=== PATIENT | female | born 1965 | race Caucasian/White ===

== ENCOUNTER 2019-10-08 12:08 | Outpatient (CLI) | payer MEDICARE, MEDICAID, SELFPAY ==
--- NOTE | 2019-10-10 16:44 | WPDHOLTEREM ---
Holter/Event Monitor Holter/Event Monitor Date of procedure: 10/08/19 Procedure Type: 48 hour holter monitor Indications: Recurrent falls Conclusion: 1. 48 hour holter monitor on 10/08/19. 2. Underlying rhythm is sinus rhythm. HR range 43-132 bpm; average HR 76 bpm. 3. There is one premature supraventricular complex. No supraventricular tachycardia. 4. No premature ventricular complex. No ventricular tachycardia. 5. No sinoatrial or atrioventricular blocks. No significant pauses greater than 2 seconds. 6. No symptoms available for correlation.
== END 2019-10-08 12:09 | disposition home or self-care (01) ==
PROVIDERS: PCP Family Medicine; Visit Provider Family Medicine
DX: R29.6 Repeated falls (principal)
CPT/HCPCS: 93225; 93226

== ENCOUNTER 2019-10-17 11:17 | Outpatient (CLI) | payer MEDICARE, MEDICAID, SELFPAY ==
--- NOTE | ~2019-10-17 | XR_ITS ---
EXAMINATION: XR chest 2V DATE: 10/17/2019 11:49 INDICATION: Left chest pain. TECHNIQUE: Frontal and lateral views of the chest were obtained. COMPARISON: Chest 2 views 04/28/2019 FINDINGS: A calcified right lung nodule is consistent with old granulomatous disease. No pleural effu margaret or pneumothorax. The heart size is normal. IMPRESSION: 1. No acute cardiopulmonary disease. Reviewed, dictated and finalized at location A. WORKING MACHINE FEEDER
--- NOTE | ~2019-10-17 | XR_ITS ---
EXAMINATION:XR_CERV2-3V_CR DATE: 10/17/2019 11:49 INDICATION: Left-sided chest pain TECHNIQUE: AP, lateral, and odontoid views of the cervical spine are provided. COMPARISON: None FINDINGS: There are 2 mm of retrolisthesis of C3 on C4. Vertebral body alignment is otherwise normal. The odontoid is intact. No fracture is identified. The vertebral body heights are normal. There is m ild loss of intervertebral disc space height at C5-6 and C6-7. There is moderate multilevel facet and uncovertebral joint osteoarthritis. Prevertebral soft tissues are normal. IMPRESSION: 1. Mild cervical spondylosis without acute findings. Reviewed, dictated and finalized at location A. DESIGNER
--- NOTE | ~2019-10-17 | XR_ITS ---
EXAMINATION: XR lumbar spine 2-3V DATE: 10/17/2019 11:49 INDICATION: Lumbago with sciatica. Radiculopathy. TECHNIQUE: 3 views of lumbar spine were obtained. COMPARISON: Lumbar spine radiograph 02/28/2019 FINDINGS: There is 5 degrees levocurvature of lumbar spine. Vertebral body heights are normal. There is mildly decreased disc height at L1-L2, moderately decreased disc height at L2-L3 and L3-L4, and mi ldly decreased disc height at L4-L5. There is multilevel facet joint osteoarthritis, severe in lower lumbar spine. IMPRESSION: 1. Moderate lumbar spondylosis. Reviewed, dictated and finalized at location A. CTOR OF MATERNITY SERVICES
== END 2019-10-17 11:18 | disposition home or self-care (01) ==
PROVIDERS: PCP Family Medicine; Visit Provider Family Medicine
DX: R07.9 Chest pain, unspecified (principal); M54.42 Lumbago with sciatica, left side; M47.22 Other spondylosis with radiculopathy, cervical region; M47.896 Other spondylosis, lumbar region
CPT/HCPCS: 71046; 72040; 72100

== ENCOUNTER 2019-10-22 10:13 | Outpatient (CLI) | payer MEDICARE, MEDICAID, SELFPAY ==
--- NOTE | ~2019-10-22 | MM_ITS ---
EXAMINATION: MM screening yolanda BI w silvia HISTORY: Screening mammogram, family history of breast cancer in her mother. TECHNIQUE: Craniocaudal and mediolateral oblique 3-D tomosynthesis images were obtained and synthetic 2-D images were generated. CAD analysis was submitted and interpreted. COMPARISON: 10/16/2015, 09/26/2012, 09/07/2010 BREAST PARENCHYMAL COMPOSITION: There are scattered areas of fibroglandular density. FINDINGS: There is no evidence of suspicious mass, calcification, or architectural distortion to sugg est malignancy in either breast. There has been no suspicious interval change. IMPRESSION: 1. No mammographic evidence of malignancy. 2. Recommend routine screening mammography in one year. BI-RADS Category 1: Negative Reviewed, dictated and finalized at location A. ERER FURNACE
== END 2019-10-22 10:14 | disposition home or self-care (01) ==
PROVIDERS: PCP Family Medicine; Visit Provider Family Medicine
DX: Z12.31 Encounter for screening mammogram for malignant neoplasm of breast (principal)
CPT/HCPCS: 77063; 77067

== ENCOUNTER 2020-01-20 08:27 | Outpatient (CLI) | payer MEDICARE, MEDICAID, SELFPAY ==
--- NOTE | ~2020-01-20 | XR_ITS ---
EXAMINATION: XR barium swallow DATE: 01/20/2020 08:58 INDICATION: Intermittent dysphagia TECHNIQUE: The patient drank thick barium, gas-producing crystals, and thin barium. Fluoroscopic spot images of the hypopharynx and esophagus were obtained. A total of 1237 images were obtained. Fluoros copy exposure time was 2.1 minutes. COMPARISON: None. FINDINGS: The pharynx is symmetric and without evidence of mass lesion or mucosal irregularity. The e sophagus is normal without mass or stricture. Esophageal motility is normal. There is no hiatal herni a. There was no gastroesophageal reflux with provocative maneuvers. IMPRESSION: 1. Normal esophagram. Reviewed, dictated and finalized at location A. IMPRESSION: 1. Normal esophagram.
== END 2020-01-20 08:28 | disposition home or self-care (01) ==
LOC: ANHIMG 08:29
PROVIDERS: PCP Family Medicine; Visit Provider Family Medicine
DX: R13.19 Other dysphagia (principal)
CPT/HCPCS: 74220

== ENCOUNTER 2020-10-27 14:58 | Outpatient (CLI) | payer MEDICARE, MEDICAID, SELFPAY ==
--- NOTE | ~2020-10-27 | MM_ITS ---
EXAMINATION: MM screening yolanda BI w silvia HISTORY: Screening mammogram, family history of breast cancer in her sister. TECHNIQUE: Craniocaudal and mediolateral oblique 3-D tomosynthesis images were obtained and synthetic 2-D images were generated. CAD analysis was submitted and interpreted. COMPARISON: 10/22/2019, 10/16/2015, 09/26/2012 BREAST PARENCHYMAL COMPOSITION: There are scattered areas of fibroglandular density. FINDINGS: There is no evidence of suspicious mass, calcification, or architectural distortion to sugg est malignancy in either breast. There has been no suspicious interval change. IMPRESSION: 1. No mammographic evidence of malignancy. 2. Recommend routine screening mammography in one year. BI-RADS Category 1: Negative Reviewed, dictated and finalized at location A. TECHNOLOGIST
== END 2020-10-27 14:59 | disposition home or self-care (01) ==
PROVIDERS: PCP Family Medicine; Visit Provider Family Medicine
DX: Z12.31 Encounter for screening mammogram for malignant neoplasm of breast (principal)
CPT/HCPCS: 77063; 77067

== ENCOUNTER 2022-08-18 15:01 | Outpatient (CLI) | payer OTHER, SELFPAY ==
--- NOTE | ~2022-08-18 | CT_ITS ---
CT Abdomen with contrast. History: Chronic hepatitis B. Spiral CT of the abdomen was performed after the administration of intravenous contrast, with imaging in the arterial and portal venous phases. 100 cc of Omnipaque 350 was administered intravenously wit hout complication. Dose reduction technique was used on this scan by utilizing automated exposure con trol and iterative reconstruction technique. The dose-length product (DLP) was 806.62 mGy-cm. Findings: Scans through the lung bases demonstrate mild atelectatic change. The liver, spleen, pancreas, gallbladder, adrenals and kidneys are within normal limits. No evidence of aortic aneurysm. No lymphadenopathy is seen. Visualized bowel loops are unremarkable. No ascites. Impression: No significant abnormalities seen. Reviewed, dictated and finalized at location [] S WOOL BLANKET MACHINE FEEDER Impression: No significant abnormalities seen.
== END 2022-08-18 15:02 | disposition home or self-care (01) ==
PROVIDERS: PCP Internal Medicine; Visit Provider Internal Medicine
DX: B18.1 Chronic viral hepatitis B without delta-agent (principal)
CPT/HCPCS: 74160; Q9967

== ENCOUNTER 2024-04-05 15:51 | Emergency (ER) | payer OTHER, SELFPAY ==
[2024-04-05 16:17] VITALS: BP 178/88; PULSE 81; RESP 16; TEMP 36.6; O2SAT 98
--- NOTE | 2024-04-05 16:26 | ED.GENADULT ---
HPI - General Adult General Chief complaint: Skin/Abscess/Foreign Body Stated complaint: Rash Time Seen by Provider: 04/05/24 16:20 History of Present Illness HPI narrative: 58 y/o female presents with 3 areas that have been on each hand and upper lip x 1 month. patient states it was itchy but is not currently. patient has tried otc steroid cream with no relief. no other complaints. patient denies fevers. Onset (ago): month(s) (1) Related Data Allergies Allergy/AdvReac Type Severity Reaction Status Date / Time Penicillins Allergy Unknown Unknown Verified 04/05/24 16:20 prednisone Allergy Unknown Unknown Verified 04/05/24 16:20 strawberry Allergy Unknown Unknown Verified 04/05/24 16:20 INJECTABLE STEROIDS Allergy Mild Unknown Uncoded 04/05/24 16:20 Review of Systems Review of Systems: All systems reviewed & are unremarkable except as noted in HPI and below Integumentary/Breasts: Skin/Breast: Reports rash PMFSH Family History Family History (System 08/18/22 @ 16:01 by Miladys Chin) Mother Family history of endocrine disorder Family history of elevated blood lipids Grandparent Hypertension Family history of elevated blood lipids Diabetes mellitus Father Carcinoma of colon Patient's father is Sibling Family history of malignant neoplasm of breast in first degree relative Patient's sister is Social History Social History (System 08/18/22 @ 16:01 by Miladys Chin) Second hand tobacco smoke exposure: No Smoking end date: 09/04/12 Alcohol intake: never Exam Const: General: healthy appearing and no acute distress HENMT: Head: normal to inspection Eyes: Conjunctivae: conjunctivae normal EOM: EOMs intact bilaterally Neck: Neck: normal visual inspection Chest: Chest palpation & inspection: normal inspection of the chest Resp: Effort & Inspection: normal respiratory effort Cardio: Rate: regular rate Back/Spine/Pelvis: Back: no CVA tenderness Skin: Other: 3 circular area to bilateral hands, and upper lip. area is clear in the middle with raised areas on the border, no redness Neuro: General: patient oriented x3 Extrem: General: normal to inspection Psych: Mental Status: mental status grossly normal Course Course Emergency Course: will start on anti-fungal for ring worm Vital Signs Vital signs: Vital Signs Temperature 36.6 C 04/05/24 16:17 Pulse Rate 81 04/05/24 16:17 Respiratory Rate 16 04/05/24 16:17 Blood Pressure 178/88 H 04/05/24 16:17 Pulse Oximetry 98 04/05/24 16:17 Temperature 36.6 C 04/05/24 16:17 Pulse Rate 81 04/05/24 16:17 Respiratory Rate 16 04/05/24 16:17 Blood Pressure 178/88 H 04/05/24 16:17 Pulse Oximetry 98 04/05/24 16:17 Medical Decision Making Differential Diagnosis Differential Diagnosis: contact dermatitis vs ring worm Vital Signs Vital Signs: Vital Signs Temperature 36.6 C 04/05/24 16:17 Pulse Rate 81 04/05/24 16:17 Respiratory Rate 16 04/05/24 16:17 Blood Pressure 178/88 H 04/05/24 16:17 Pulse Oximetry 98 04/05/24 16:17 Temperature 36.6 C 04/05/24 16:17 Pulse Rate 81 04/05/24 16:17 Respiratory Rate 16 04/05/24 16:17 Blood Pressure 178/88 H 04/05/24 16:17 Pulse Oximetry 98 04/05/24 16:17 Discharge Plan Discharge Clinical Impression: Tinea corporis Patient Disposition: Home, Self-Care Condition: Stable Instructions: Antibiotic Form, Tinea Corporis (ED) Additional Instructions: APPLY MEDICATIONS PRESCRIBED RETURN FOR WORSENING SYMPTOMS FOLLOW-UP WITH PRIMARY CARE DOCTOR IN 2 WEEKS Prescriptions: New terbinafine HCl [Antifungal (terbinafine)] 1 % cream 1 applic topical BID 21 Days Qty: 15 0RF Follow-up/Referrals: Betty,Guerrero Husain MD [Primary Care Provider] - 2 Weeks Time of Disposition: 16:33
[2024-04-05 17:09] VITALS: BP 170/78; PULSE 57; RESP 17; TEMP 36.4; O2SAT 98
== END 2024-04-05 17:11 | disposition home or self-care (01) ==
PROVIDERS: Emergency Provider Nurse Practitioner Family; PCP Internal Medicine
DX: B35.4 Tinea corporis (principal); Z87.891 Personal history of nicotine dependence
CPT/HCPCS: 99283

== ENCOUNTER 2024-10-09 08:50 | Outpatient (CLI) | payer OTHER, SELFPAY ==
--- OUTSIDE RECORDS SUMMARY | 2024-10-09 09:02 | XMS_ITS | Clinical Summary ---
Author Organization [facility] Address [address] [place] [address] Care Team Providers Care Rolling Chair Pusher Name Role Phone Jax Connelly Primary Care Provider + Social History Tobacco Use Types Packs/Day Years Used Date Smoking Tobacco: Never Assessed Personal Safety Answer Date Recorded Getting School Help Needed Not on file 11/17 Comments Unknown Sex and Gender Information Value Date Recorded Sex Assigned at Not on file Legal Sex Female 5:13 AM PARTS CONTROL CLERK Gender Identity Not on file Sexual Orientation Not on file Plan of Treatment Health Maintenance Due Date Last Done Comments Cervical Cancer Screening 1963 Colon Cancer Screening-Colonoscopy 1963 Depression Screening 1963 DTaP/Tdap/Td Vaccine (1 - Tdap) 1974 Regular Well Visit/Exam 18-64 1981 Breast Cancer Screening-Mammogram 11/27/2014 11/27/2013 Zoster Vaccine (3 of 3) 11/24/2020 09/29/2020, 06/13 Covid-19 Vaccine ( season) 2024 11/27/2020, 11/05/2020 Influenza Vaccine (#1) 2024 , 07/21/2020, 08/15/2019, Additional history exists Pneumococcal vaccine <65 Aged Out 08/15/2019, 09/2018 No longer eligible based on patient's age to complete this topic Hepatitis B Screening Completed 07/09/2021, 014 Hepatitis C Screening Completed 09/09/2021 , 07/09/2021, 11/16/2013, Additional history exists Procedures Procedure Name Priority Date/Time Associated Diagnosis Comments HEPATITIS C RNA, QUANTITATIVE, PCR Routine 09/09/2021 8:09 AM PARTS CONTROL CLERK SCREENING MAMMOGRAM 2D BILATERAL Routine 11/27/2013 8:25 AM CDT from Last 3 Months or Most Recently Relevant to Health Maintenance Results * Hepatitis C (HCV) RNA PCR, quantitative (09/09/2021 8:09 AM PARTS CONTROL CLERK) HCV RNA result Not Detected ALVARO CUELLAR Comment: The quantifiable range of this assay is 15 IU/mL to 100,000,000 IU/mL (1.18 log IU/mL to 8.00 log IU/mL). Testing was performed by the ESTELA 6800 HCV Test ([employer] Testing performed at [facility] Current Interpretive Data was last revised on 2021 Testing performed by: [facility], [address] [place] [address], [place]., [address] Blood 09/09/2021 8:09 AM PARTS CONTROL CLERK 09/09/2021 11:12 AM PARTS CONTROL CLERK us Funmi Maria MD LAB MICROBIOLOGY - GENERA L ORDERABLES Final Result ALVARO CUELLAR [id number] [facility] Department [place] [address] * Screening Mammogram 2D Bilateral (11/27/2013 8:25 AM CDT) Anatomical Region Laterality Modality Breast Bilateral Mammography 11/27/2013 8:25 AM CDT Impressions 12/02/2013 1:56 PM CDT ?? No mammographic evidence of malignancy. ??Recommend routine annual screening mammography. Given the reported family history of breast cancer, the patient may benefit from genetic counseling, breast cancer lifetime risk assessment, and/or possible screening with breast MRI in conjunction with mammography. ASSESSMENT: ??BIRADS: 1 - Negative A letter will be mailed to the patient with the results and recommendations. The patient will be entered into a reminder system for an anual screening mammogram in 1 year. THIS IS AN ELECTRONICALLY VERIFIED REPORT 12/02/2013 1:53 PM: ??Shahriar Wilson M.D. Shahriar Wilson M.D. MD: 01:53 PM 01:53 PM [facility] [EOD] Narrative 12/02/2013 1:56 PM CDT EXAMINATION: ??Bilateral screening mammography HISTORY: Routine screening mammogram. Sister diagnosed with breast cancer in her late twenties. COMPARISON: ??Prior mammograms performed at [facility] ([place], [place]) dated 09/26/2012, 09/07/2010, and 07/13/2009. TECHNIQUE: ??Bilateral digital full field of view mammography was performed, with the aid of computer aided detection (CAD). FINDINGS: ??The breasts are composed of heterogeneously dense tissue, which may limit the sensitivity of mammography. No significant mass, microcalcifications, or other findings are seen. No suspicious interval change is identified relative to the prior studies. Procedure Note Provider, MD Chris - 01/20/2021 EXAMINATION: Bilateral screening mammography HISTORY: Routine screening mammogram. Sister diagnosed with breast cancerin her late twenties. COMPARISON: [facility] ([place], [place]) dated 09/26/2012, 09/07/2010, and07/13/2009. TECHNIQUE: Bilateral digital full field of view mammography wasperformed, with the aid of computer aided detection (CAD). FINDINGS: The breasts are composed of heterogeneously dense tissue, whichmay limit the sensitivity of mammography. No significant mass, microcalcifications, or other findings are seen. No suspicious intervalchange is identified relative to the prior studies. IMPRESSION: No mammographic evidence of malignancy. Recommend routine annualscreening mammography. Given the reported family history of breast cancer, the patient maybenefit from genetic counseling, breast cancer lifetime risk assessment, and/or possible screening with breast MRI in conjunction with mammography. ASSESSMENT: BIRADS: 1 - Negative A letter will be mailed to the patient with the results andrecommendations. The patient will be entered into a reminder system for an anual screening mammogram in 1 year. THIS IS AN ELECTRONICALLY VERIFIED REPORT 12/02/2013 1:53 PM: Shahriar Wilson M.D. Shahriar Wilson M.D. MD: 01:53 PM 01:53 PM [facility] [EOD] [facility] Twila Poe MD IMG MAMMO PROCEDURES Fi nal Result from Last 3 Months or Most Recently Relevant to Health Maintenance Insurance [address] [place] [address] [facility] Care Teams Rolling Chair Pusher Relationship Specialty Start Date End Date Jax Connelly PA [address] [place] [id number] PCP - General Internal Medicine 09/09/21
--- OUTSIDE RECORDS SUMMARY | 2024-10-09 09:02 | XMS_ITS | Referral Summary ---
Author Organization [facility] Address [address] [place] [address] Care Team Providers Care Materials Supervisor Name Role Phone Jax Connelly Primary Care Provider + Social History Tobacco Use Types Packs/Day Years Used Date Smoking Tobacco: Never Assessed Personal Safety Answer Date Recorded Getting School Help Needed Not on file 11/17 Comments Unknown Sex and Gender Information Value Date Recorded Sex Assigned at Not on file Legal Sex Female 5:13 AM CASHIER OFFICE Gender Identity Not on file Sexual Orientation Not on file Plan of Treatment Not on file Procedures Procedure Name Priority Date/Time Associated Diagnosis Comments HEPATITIS C RNA, QUANTITATIVE, PCR Routine 09/09/2021 8:09 AM CASHIER OFFICE SCREENING MAMMOGRAM 2D BILATERAL Routine 11/27/2013 8:25 AM CDT from Last 3 Months or Most Recently Relevant to Health Maintenance Results * Hepatitis C (HCV) RNA PCR, quantitative (09/09/2021 8:09 AM CASHIER OFFICE) HCV RNA result Not Detected ALVARO CUELLAR Comment: The quantifiable range of this assay is 15 IU/mL to 100,000,000 IU/mL (1.18 log IU/mL to 8.00 log IU/mL). Testing was performed by the ESTELA 6800 HCV Test ([employer] Testing performed at [facility] Current Interpretive Data was last revised on 2021 Testing performed by: [facility], [address] [facility], [place]., [address] Blood 09/09/2021 8:09 AM CASHIER OFFICE 09/09/2021 11:12 AM CASHIER OFFICE us Funmi Maria MD LAB MICROBIOLOGY - GENERA L ORDERABLES Final Result ALVARO [address] [facility] Department [place] [address] * Screening Mammogram 2D Bilateral (11/27/2013 8:25 [...] Wilson M.D. MD: 01:53 PM 01:[address] [facility] [EOD] Narrative 12/02/2013 1:56 PM CDT EXAMINATION: ??Bilateral screening mammography HISTORY: Routine screening mammogram. Sister diagnosed with breast cancer in her late twenties. COMPARISON: ??Prior mammograms performed at [facility] ([place], [place]) dated 09/26/2012, 09/07/2010, and 07/13/2009. TECHNIQUE: [...] late twenties. COMPARISON: Prior mammograms performed at [facility] ([place], [place]) dated 09/26/2012, 09/07/2010, and07/13/2009. TECHNIQUE: Bilateral [...] Wilson M.D. MD: 01:53 PM 01:[address] [facility] [EOD] Manan Poe MD IMG MAMMO PROCEDURES Fi nal Result from Last 3 Months or Most Recently Relevant to Health Maintenance Insurance [facility] Care Teams Materials Supervisor Relationship Specialty Start Date End Date Jax Connelly PA [address] [place] [id number] PCP - General Internal Medicine 09/09/21
--- OUTSIDE RECORDS SUMMARY | 2024-10-09 09:03 | XMS_ITS | Clinical Summary ---
Author Organization [facility] Address [address] [place] [id number] Care Team Providers Care Photography Assistant Name Role Phone Grace Garrett MD Primary Care Provider [phone] Social History Tobacco Use Types Packs/Day Years Used Date Smoking Tobacco: Never Assessed Comments Unknown Sex and Gender Information Value Date Recorded Sex Assigned at Not on file Legal Sex Female 8:07 PM CDT Gender Identity Not on file Sexual Orientation Not on file Plan of Treatment Health Maintenance Due Date Last Done Comments Cervical Cancer Screening Pa p Smear (Age 30 to 64) Every 3 Years 1963 Colorectal Cancer Screening Colonoscopy (10 Years) 1963 Annual Physical 1966 DTaP, Tdap and Td Vaccines ( 1 - Tdap) 1982 Cervical Cancer Screening Pa p with HPV Testing (Age 30 to 64) Every 5 Years 1993 Cervical Cancer Screening with HPV 1993 Mammogram Screening 2003 Zoster Vaccines (1 of 2) 2013 COVID-19 Vaccine (2023-2 5 season) 2024 Influenza Adult (#1) 2024 RSV Immunization or 60+ Years (1 - 1-dose 75+ series) 2038 Hepatitis C Completed 01/11/2012 Meningococcal B Vaccine Aged Out No l onger eligible based on patient's age to complete this topic Meningococcal Vaccine Aged Out No steve yamil eligible based on patient's age to complete this topic Pneumococcal Vaccine: Pediat rics (0 to 5 Years) and At-Risk Patients (6 to 64 Years) Aged Out No longer eligi ble based on patient's age to complete this topic RSV Immunizations Under 20 Months Aged Out No longer eligible based on patient's age to complete this topic Care Teams Photography Assistant Relationship Specialty Start Date End Date Grace Garrett MD [address] [place] [address] [facility] - General 11/10/16
--- OUTSIDE RECORDS SUMMARY | 2024-10-09 09:03 | XMS_ITS | Patient Health Summary ---
Author Organization [facility] [employer] Address [facility] [place] [address] Care Team Providers Care Video Game Maker Name Role Phone Unavailable Primary Care Provider Unavailabl e Note from [facility],non-owned Affiliates and Associated Physician Practices is amultiple site organization consisting of ambulatory clinics and hospital sitesin [place], [place], [place] and [place]. This disclosure is being madepursuant to the Care Everywhere program and may not contain all information available regarding this patient. Last updated 18.[facility] Allergies * Penicillins Medications * Be aware that medications may not be up to date on this document. Alwaysverify current medications with the patient. * ibuprofen (MOTRIN) 800 MG tablet 3 times daily. * buPROPion SR 12hr (WELLBUTRIN SR) 150 MG tablet daily. * diclofenac sodium (VOLTAREN) 75 MG tablet(Started 12/06/2010) Take 1 Tab by mouth 2 times daily. 4 refills left * albuterol HFA (PROVENTIL; VENTOLIN; PROAIR) 108 (90 Base) MCG/ACT inhaler (Started 08/17/2021) INHALE 2 PUFFS BY MOUTH 4 TIMES A DAY NEEDED * vitamin D, ergocalciferol, (DRISDOL) 1.25 MG (34719 UT) capsule(Started 09/26/2021) Take 50,000 Units by mouth every 14 days * lactulose (CHRONULAC) 10 GM/15ML solution(Started 09/07/2021) TAKE 15ML BY MOUTH TWICE DAILY FOR 30 DAYS * omeprazole (PRILOSEC) 20 MG capsule(Started 08/31/2021) Take 20 mg by mouth once daily * lamoTRIgine (LAMICTAL) 150 MG tablet(Started 07/10/2021) TAKE 1 TABLET TWICE A DAY BY ORAL ROUTE BEFORE MEALS FOR 30 DAYS. * oxybutynin (DITROPAN) 5 MG tablet(Started 09/30/2021) TAKE ONE TABLET BY MOUTH TWICE DAILY FOR A NINETY DAY SUPPLY. * QUEtiapine (SEROQUEL) 50 MG tablet(Started 08/21/2021) TAKE 1 TABLET BY MOUTH EVERYDAY AT BEDTIME * triamcinolone acetonide (KENALOG) 0.1 % cream(Started 08/19/2021) APPLY THIN COAT TO AFFECTED AREA TWICE A DAY Active Problems Problem Noted Date Diagnosed Date Degeneration of lumbar or lumbosacral interverte bral disc 12/16/2010 Social History Tobacco Use Types Packs/Day Years Used Date Smoking Tobacco: Every Day Cigarettes 0.5 25 Smokeless Tobacco: Never Alcohol Use Standard Drinks/Week Comments Not Currently 0 (1 standard drink = 0.6 oz pure alcohol) ABSTINENT X 9 MONTHS-EPISODES OF HEAVY USE IN PAST Sex and Gender Information Value Date Recorded Sex Assigned at Not on file Gender Identity Not on file Sexual Orientation Not on file Last Filed Vital Signs Vital Sign Reading Time Taken Comments Blood Pressure 185/88 10/05/2021 9:00 AM MARZIPAN MAKER Pulse 57 10/05/2021 9:00 AM MARZIPAN MAKER Temperature 37 ??C (98.6 ??F) 10/05/2021 9:00 AM MARZIPAN MAKER Respiratory Rate 14 10/05/2021 9:00 AM MARZIPAN MAKER Oxygen Saturation 99% 10/05/2021 9:00 AM MARZIPAN MAKER Inhaled Oxygen Concentration - - Weight 80.7 kg (178 lb) 10/05/2021 9:00 AM MARZIPAN MAKER Height 167.6 cm (5' 6 ) 10/05/2021 9:00 AM MARZIPAN MAKER Body Mass Index 28.73 10/05/2021 9:00 AM MARZIPAN MAKER Procedures * XR FOOT BILAT 3VW OR MORE(Performed 11/25/2010) * MRI LUMBAR SPINE WO CONTRAST(Performed 11/25/2010) Results * XR FOOT BILAT MIN 3 VIEWS (11/25/2010) Anatomical Region Laterality Modality Ankle / Foot, Lower Extremity Ot her Juan Borrego MD DIAGNOSTIC IMAGING O RDERABLES * MRI SPINE LUMBAR NON CONTRAST (11/25/2010) Anatomical Region Laterality Modality Spine Other Juan Borrego MD MR ORDERABLES
--- OUTSIDE RECORDS SUMMARY | 2024-10-09 09:03 | XMS_ITS | Referral Summary ---
Author Organization [facility] [employer] Address [facility] [facility] [place] [address] Care Team Providers Care Geochemical Manager Name Role Phone Unavailable Primary Care Provider Unavailabl e Source Comments [facility],non-owned Affiliates and Associated Physician Practices is amultiple site organization consisting of ambulatory clinics and hospital sitesin [place], [place], [place] and [place]. This disclosure is being madepursuant to the Care Everywhere program and may not contain all information available regarding this patient. Last updated 18.[facility] [employer] Allergies Active Allergy Reactions Criticality Noted Date Comments Penicillins 12/06/2010 Medications * Be aware that medications may not be up to date on this document. Alwaysverify current medications with the patient. Medication Sig Dispensed Refills Start Date End Date Status ibuprofen (MOTRIN) 800 MG tablet 3 times daily. Active buPROPion SR 12hr (WELLBUTRIN SR) 150 MG tablet daily. Active diclofenac sodium (VOLTAREN) 75 MG tablet Take 1 Tab by mouth 2 times daily. 60 Tab 4 12/06/2010 Active albuterol HFA (PROVENTIL; VENTOLIN; PROAIR) 108 (90 Base) MCG/ACT inhaler INHALE 2 PUFFS BY MOUTH 4 TIMES A DAY NEEDED 08/17/2021 Active vitamin D, ergocalciferol, (DRISDOL) 1.25 MG (44980 UT) capsule Take 50,000 Units by mouth every 14 days 09/26/2021 Active lactulose (CHRONULAC) 10 GM/15ML solution TAKE 15ML BY MOUTH TWICE DAILY FOR 30 DAYS 09/07/2021 Active omeprazole (PRILOSEC) 20 MG capsule Take 20 mg by mouth once daily 08/31/2021 Active lamoTRIgine (LAMICTAL) 150 MG tablet TAKE 1 TABLET TWICE A DAY BY ORAL ROUTE BEFORE MEALS FOR 30 DAYS. 07/10/2021 Active oxybutynin (DITROPAN) 5 MG tablet TAKE ONE TABLET BY MOUTH TWICE DAILY FOR A NINETY DAY SUPPLY. 09/30/2021 Active QUEtiapine (SEROQUEL) 50 MG tablet TAKE 1 TABLET BY MOUTH EVERYDAY AT BEDTIME 08/21/2021 Active triamcinolone acetonide (KENALOG) 0.1 % cream APPLY THIN COAT TO AFFECTED AREA TWICE A DAY 08/19/2021 Active Active Problems Problem Noted Date Diagnosed Date [...] Comments Blood Pressure 185/88 10/05/2021 9:00 AM AUTOMOTIVE MECHANICAL ENGINEER Pulse 57 10/05/2021 9:00 AM AUTOMOTIVE MECHANICAL ENGINEER Temperature 37 ??C (98.6 ??F) 10/05/2021 9:00 AM AUTOMOTIVE MECHANICAL ENGINEER Respiratory Rate 14 10/05/2021 9:00 AM AUTOMOTIVE MECHANICAL ENGINEER Oxygen Saturation 99% 10/05/2021 9:00 AM AUTOMOTIVE MECHANICAL ENGINEER Inhaled Oxygen Concentration - - Weight 80.7 kg (178 lb) 10/05/2021 9:00 AM AUTOMOTIVE MECHANICAL ENGINEER Height 167.6 cm (5' 6 ) 10/05/2021 9:00 AM AUTOMOTIVE MECHANICAL ENGINEER Body Mass Index 28.73 10/05/2021 9:00 AM AUTOMOTIVE MECHANICAL ENGINEER Plan of Treatment Not on file Goals Goal Patient Goal Type Associated Problems Recent Progress Patient-Stated? Author Medication Management General On track( 022 9:21 AM AUTOMOTIVE MECHANICAL ENGINEER) Rogerio Khan RN Note: Expected end date: Interventions: Take all medications as prescribed Let your doctor know right away about any changes in your medications Make sure to request a refill of your medication at least one week prior to your last dose HENNY SALTER Personal/Family 1965 [address] [place] [address]
--- OUTSIDE RECORDS SUMMARY | 2024-10-09 09:03 | XMS_ITS | Clinical Summary ---
Author Organization [facility] [email or web address] Address [facility] [facility] [place] [address] Care Team Providers Care Survey Associate Name Role Phone Unavailable Primary Care Provider Unavailabl e Source Comments [facility] [employer],non-owned Affiliates and Associated Physician Practices is amultiple site organization consisting of ambulatory clinics and hospital sitesin [place], [place], [place] and [place]. This disclosure is being madepursuant to the Care Everywhere program and may not contain all information available regarding this patient. Last updated 18.[facility] [email or web address] Allergies Active Allergy Reactions Criticality Noted Date [...] Active vitamin D, ergocalciferol, (DRISDOL) 1.25 MG (90412 UT) capsule Take 50,000 Units by mouth [...] Comments Blood Pressure 185/88 10/05/2021 9:00 AM MANAGER EDUCATION Pulse 57 10/05/2021 9:00 AM MANAGER EDUCATION Temperature 37 ??C (98.6 ??F) 10/05/2021 9:00 AM MANAGER EDUCATION Respiratory Rate 14 10/05/2021 9:00 AM MANAGER EDUCATION Oxygen Saturation 99% 10/05/2021 9:00 AM MANAGER EDUCATION Inhaled Oxygen Concentration - - Weight 80.7 kg (178 lb) 10/05/2021 9:00 AM MANAGER EDUCATION Height 167.6 cm (5' 6 ) 10/05/2021 9:00 AM MANAGER EDUCATION Body Mass Index 28.73 10/05/2021 9:00 AM MANAGER EDUCATION Plan of Treatment Health Maintenance Due Date Last Done Comments COLOGUARD (AGES 45-75) - COL ON CA SCREENING 1963 COLON MONITORING 1963 COLONOSCOPY - COLON CA SCREENING 1963 CT COLONOGRAPHY - COLON CA SCREENING 1963 Colorectal Cancer Screening 1963 FIT - COLON CA SCREENING 1963 FLEX SIG - COLON CA SCREENING 1963 LIPID TESTING 1963 MAMMOGRAM 1963 PAP SMEAR 1963 HIV SCREENING 1978 HEPATITIS C SCREENING 04/01/1981 DTAP/TDAP/TD VACCINES (1 - Tdap) 1982 PNEUMOCOCCAL VACCINE 50+ (1 of 2 - PCV) 1982 PNEUMOCOCCAL VACCINE (1 of 2 - PCV) 1982 ZOSTER VACCINE (1 of 2) 2013 SCREENING FOR DIABETES 10/05/2021 COVID-19 VACCINE (1 - 2023-2 5 season) 2024 INFLUENZA VACCINE (#1) 2024 0, 06/04/2019 DEPRESSION SCREENING 09/04/2024 Respiratory Syncytial Virus (RSV) Vaccine Pt: or over 60 yrs (1 - 1-dose 75+ series) 2038 HEPATITIS B VACCINE Aged Out No longe r eligible based on patient's age to complete this topic HIB VACCINE Aged Out No longer eligi ble based on patient's age to complete this topic HPV VACCINE Aged Out No longer eligi ble based on patient's age to complete this topic MENINGOCOCCAL (Group B) VACCINE Aged Out No longer eligible b ased on patient's age to complete this topic MENINGOCOCCAL VACCINE Aged Out No steve yamil eligible based on patient's age to complete this topic Goals Goal Patient Goal Type Associated Problems Recent Progress Patient-Stated? Author Medication Management General On track( 022 9:21 AM MANAGER EDUCATION) Rogerio Khan, RN Note: Expected end date: Interventions: Take all medications as prescribed Let your doctor know right away about any changes in your medications Make sure to request a refill of your medication at least one week prior to your last dose HENNY SALTER Personal/Family 1965 [address] [place] [address]
--- OUTSIDE RECORDS SUMMARY | 2024-10-09 09:03 | XMS_ITS | CONTINUITY OF CARE DOCUMENT ---
Author Name brian torres Address Unknown Organization [facility] Address [address] [place] [address] Phone [phone] Care Team Providers Care Miniature Set Constructor Name Role Phone John ALCARAZ, Yash Unavailable INSURANCE PROVIDERS Payer name Policy type / Coverage type [place] [employer] republic[employer] Medicaid 0 [id number] [place] [employer] Medicare [id number]
[2024-10-09 09:39] LABS: Rheumatoid Factor < 12.0 IU/ML (<12)
[2024-10-09 09:41] LABS: Alanine Aminotransferase 18 U/L (6-35); Albumin Level 4.4 g/dL (3.5-5.1); Alkaline Phosphatase 60 U/L (38-126); Anion Gap 7 mmol/L (4-12); Aspartate Amino Transferase 22 U/L (14-36); Bilirubin,Total 1.1 mg/dL (0.2-1.3); Blood Urea Nitrogen 21 mg/dL (7-17); CRP < 0.5 mg/dL (<1.0); Calcium 9.5 mg/dL (8.4-10.2); Carbon Dioxide 26 mmol/L (22-30); Chloride 104 mmol/L (98-107); Estimated Glomerular Filt Rate > 60; Glucose 96 mg/dL (65-110); Potassium 4.4 mmol/L (3.4-5.0); Sodium 137 mmol/L (137-145)
== END 2024-10-09 08:51 | disposition home or self-care (01) ==
LOC: ANHLAB 08:50
PROVIDERS: PCP Internal Medicine; Visit Provider Registered Nurse
DX: M25.50 Pain in unspecified joint (principal); D48.5 Neoplasm of uncertain behavior of skin; L92.0 Granuloma annulare
CPT/HCPCS: 36415; 80053; 86140; 86430